=== PATIENT | female | born 1985 | race Hispanic/Latino ===

== ENCOUNTER 2017-05-20 03:51 | Emergency (ER) | payer MEDICAID, OTHER ==
[2017-05-20 04:04] VITALS: BP 114/61; TEMP 97.5
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
[2017-05-20 05:17] VITALS: PULSE 86; RESP 19
[2017-05-20 05:27] VITALS: O2SAT 97
== END 2017-05-20 05:19 | disposition home or self-care (01) ==
LOC: C.ER 03:51
DX: S16.1XXA Strain of muscle, fascia and tendon at neck level, initial encounter (principal); S80.12XA Contusion of left lower leg, initial encounter; V89.2XXA Person injured in unspecified motor-vehicle accident, traffic, initial encounter

== ENCOUNTER 2017-05-21 21:48 | Emergency (ER) | payer OTHER ==
[2017-05-21] MEDS ORDERED: Lidocaine 5% Patch TD STA (22:31)
[2017-05-21] MEDS ORDERED: Lidocaine 5% Patch TD ONE (22:40)
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
[2017-05-22 00:36] VITALS: BP 113/60; PULSE 67; RESP 16; TEMP 98.7
[2017-05-22 06:54] VITALS: O2SAT 98
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
== END 2017-05-22 00:35 | disposition home or self-care (01) ==
LOC: C.ER 21:48
DX: M54.5 Low back pain (principal); S16.1XXD Strain of muscle, fascia and tendon at neck level, subsequent encounter; V89.2XXD Person injured in unspecified motor-vehicle accident, traffic, subsequent encounter
CPT/HCPCS: 72040; 72100; 73590; 96372; 99284; J1885

== ENCOUNTER 2017-09-17 10:45 | Emergency (ER) | payer SELFPAY ==
[2017-09-17 10:53] VITALS: BP 114/80; PULSE 81; RESP 16; TEMP 98.6; O2SAT 96; BMI 37.3
--- NOTE | 2017-09-17 11:08 | C.PDOC ---
History Of Present Illness 32 y/o female presents to the ER complaining of pain/ discharge in both ears for two weeks. She state the pain/ discharge began after swimming and worsens after going to the beach yesterday. SHe denies any associated fever, headache or trauma. B/L EAR PAIN, DC X 2 WEEKS. ONSET AFTER SWIMMING. [place] NO FEVER, TRAUMA. EXAM NONTOXIC HEENT B/L OTITIS EXTERNA; TM INTACT. OUTER EAR WNL REMAINDER NEG Time Seen by Provider: 09/17/17 11:02 Chief Complaint (Nursing): ENT Problem History Per: Patient History/Exam Limitations: None Onset/Duration Of Symptoms: Days Current Symptoms Are (Timing): Still Present Quality (Ear): Discharge Symptoms Have Been: Continuous Past Medical History Reviewed: Historical Data, Nursing Documentation, Vital Signs Vital Signs: Last Vital Signs Temp 98.6 F 09/17/17 10:51 Pulse 81 09/17/17 10:51 Resp 16 09/17/17 10:51 BP 114/80 09/17/17 10:51 Pulse Ox 96 09/18/17 15:56 - Medical History PMH: No Chronic Diseases Surgical History: No Surg Hx Family History: States: Unknown Family Hx Denies: Diabetes - Social History Hx Tobacco Use: No Hx Alcohol Use: No Hx Substance Use: No - Immunization History Hx Tetanus Toxoid Vaccination: No Hx Influenza Vaccination: No Hx Pneumococcal Vaccination: No Review Of Systems Except As Marked, All Systems Reviewed And Found Negative. Constitutional: Negative for: Fever ENT: Positive for: Ear Pain, Ear Discharge Neurological: Negative for: Headache, Dizziness Physical Exam - Physical Exam Appears: Well, Non-toxic, No Acute Distress Skin: Normal Color, Warm, No Rash Head: Atraumatic, Normacephalic Eye(s): bilateral: Normal Inspection, PERRL, EOMI Ear(s): Bilateral: Other ( OTITIS EXTERNA; TM INTACT. OUTER EAR WNL) Oral Mucosa: Moist Neck: Normal ROM Chest: Symmetrical Cardiovascular: Rhythm Regular, No Murmur Respiratory: Normal Breath Sounds, No Rales, No Rhonchi, No Wheezing, Other ( NARD) Gastrointestinal/Abdominal: Bowel Sounds, Soft, No Tenderness Extremity: Normal ROM Extremity: Bilateral: Atraumatic, Normal Color And Temperature, Normal ROM Pulses: Left Radial: Normal, Right Radial: Normal Neurological/Psych: Oriented x3 Gait: Steady ED Course And Treatment O2 Sat by Pulse Oximetry: 96 (RA) Pulse Ox Interpretation: Normal Progress Note: Impression: 32 y/o female with bilateral ear pain/ discharge Disposition Counseled Patient/Family Regarding: Diagnosis, Need For Followup, Rx Given - Disposition Referrals: [facility] [Outside] [facility] [Outside] Disposition: HOME/ ROUTINE Disposition Time: 11:06 Condition: GOOD Prescriptions: Ciprofloxacin/Dexamethasone [Ciprodex 0.3%-0.1% 7.5 Ml] 4 drop OT BID #1 bottle Instructions: Outer Ear Infection (DC) Forms: [employer] (Arabic), Work Excuse - Clinical Impression Clinical Impression: Otitis externa - 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 - Scribe Statement The provider has reviewed the documentation as recorded by the Scribe (Phuong Suárez) . Provider Attestation: All medical record entries made by the Scribe were at my direction and personally dictated by me. I have reviewed the chart and agree that the record accurately reflects my personal performance of the history, physical exam, medical decision making, and the department course for this patient. I have also personally directed, reviewed, and agree with the discharge instructions and disposition.
== END 2017-09-17 11:33 | disposition home or self-care (01) ==
LOC: C.ER 10:45
DX: H60.93 Unspecified otitis externa, bilateral (principal)

== ENCOUNTER 2018-05-10 18:29 | Observation (INO) | payer OTHER ==
[2018-05-10 18:29] VITALS: BMI 37.3
[2018-05-10 20:11] LABS: BASO # 0.1 K/uL (0.0-0.2); BASO % 0.7 % (0.0-2.0); EOS # 0.1 K/uL (0.0-0.7); EOS % 1.7 % (0.0-4.0); HEMOGLOBIN 11.9 g/dL (11.0-16.0); LYMPH # 2.3 K/uL (1.0-4.3); LYMPH % 30.4 % (20.0-40.0); MEAN CELL VOLUME 78.2 fL (81.0-99.0); MEAN CORPUSCULAR HEMOGLOBIN 25.4 pg (27.0-31.0); MEAN CORPUSCULAR HGB CONC 32.4 g/dL (33.0-37.0); MEAN PLATELET VOLUME 9.5 fL (7.2-11.7); MONO # 0.7 K/uL (0.0-0.8); MONO % 9.8 % (0.0-10.0); NEUT # 4.4 K/uL (1.8-7.0); NEUT % 57.4 % (50.0-75.0); RBC 4.71 Mil/uL (3.80-5.20); RED CELL DISTRIBUTION WIDTH 13.6 % (11.5-14.5); WHITE BLOOD COUNT 7.6 K/uL (4.8-10.8)
[2018-05-10 20:23] LABS: ALB/GLOB RATIO 1.5 (1.0-2.1); ALBUMIN 4.2 g/dL (3.5-5.0); AST/SGOT 18 U/L (14-36); BLOOD UREA NITROGEN 9 mg/dL (7-17); CALCIUM 9.1 mg/dl (8.6-10.4); GFR NON-AFRICAN AMERICAN > 60
[2018-05-10 20:25] LABS: ALT/SGPT < 6 U/L (9-52)
--- NOTE | 2018-05-10 20:58 | C.PDOC ---
History Of Present Illness Patient is a 32 year old female who presents to the ED c/o a 4 day history of cough with blood sputum. Patient states that she had a PPD placed and read as positive. She notes a tactile fever. Time Seen by Provider: 05/10/18 19:38 Chief Complaint (Nursing): Cough, Cold, Congestion History Per: Patient History/Exam Limitations: no limitations Onset/Duration Of Symptoms: Days (4) Current Symptoms Are (Timing): Still Present Recent travel outside of the [place]: No Additional History Per: Patient Past Medical History Reviewed: Historical Data, Nursing Documentation, Vital Signs Vital Signs: Last Vital Signs Temp 98.6 F 05/10/18 18:34 Pulse 75 05/10/18 18:34 Resp 16 05/10/18 18:34 BP 124/85 05/10/18 18:34 Pulse Ox 99 05/10/18 18:34 - Medical History PMH: No Chronic Diseases Surgical History: No Surg Hx Family History: States: Unknown Family Hx Denies: Diabetes - Social History Hx Tobacco Use: No Hx Alcohol Use: No Hx Substance Use: No - Immunization History Hx Tetanus Toxoid Vaccination: No Hx Influenza Vaccination: No Hx Pneumococcal Vaccination: No Review Of Systems Except As Marked, All Systems Reviewed And Found Negative. Respiratory: Positive for: Sputum (hemoptysis) Physical Exam - Physical Exam Appears: Non-toxic, No Acute Distress Skin: Normal Color, Warm, Dry Head: Atraumatic, Normacephalic Eye(s): bilateral: Normal Inspection, PERRL, EOMI Oral Mucosa: Moist Chest: Symmetrical Cardiovascular: Rhythm Regular, No Murmur Respiratory: Normal Breath Sounds, No Rales, No Rhonchi, No Wheezing Gastrointestinal/Abdominal: Normal Exam, Soft, No Tenderness Extremity: Other (1 cm raised area to volar aspect of left forearm) Extremity: Bilateral: Atraumatic, Normal Color And Temperature, Normal ROM Neurological/Psych: Oriented x3, Normal Speech ED Course And Treatment - Laboratory Results Result Diagrams: 05/11/18 07:40 05/11/18 07:40 Lab Results: Total Bilirubin 0.2 mg/dL (0.2-1.3) 05/10/18 20:07 AST 18 U/L (14-36) 05/10/18 20:07 ALT < 6 U/L (9-52) L 05/10/18 20:07 Alkaline Phosphatase 49 U/L (38-126) 05/10/18 20:07 Total Protein 7.1 g/dL (6.3-8.3) 05/10/18 20:07 Albumin 4.2 g/dL (3.5-5.0) 05/10/18 20:07 Globulin 2.9 gm/dL (2.2-3.9) 05/10/18 20:07 Albumin/Globulin Ratio 1.5 (1.0-2.1) 05/10/18 20:07 O2 Sat by Pulse Oximetry: 99 (on RA) Pulse Ox Interpretation: Normal Medical Decision Making Medical Decision Making: Plan: CXR Labs Blood Culture POC Urine Assessment: Hemoptysis Disposition Discussed With DrLandy: Matthew Monte Jr. Doctor Will See Patient In The: Hospital Counseled Patient/Family Regarding: Studies Performed, Diagnosis - Disposition Disposition: HOSPITALIZED Disposition Time: 21:00 Condition: FAIR - Clinical Impression Clinical Impression: Hemoptysis - Scribe Statement The provider has reviewed the documentation as recorded by the Rosi Ibanez All medical record entries made by the Rosi were at my direction and personally dictated by me. I have reviewed the chart and agree that the record accurately reflects my personal performance of the history, physical exam, medical decision making, and the department course for this patient. I have also personally directed, reviewed, and agree with the discharge instructions and disposition.
[2018-05-11 00:31] VITALS: RESP 20
[2018-05-11 07:45] LABS: BASO # 0.1 K/uL (0.0-0.2); BASO % 0.9 % (0.0-2.0); EOS # 0.1 K/uL (0.0-0.7); HEMOGLOBIN 11.9 g/dL (11.0-16.0); LYMPH # 1.9 K/uL (1.0-4.3); LYMPH % 25.5 % (20.0-40.0); MEAN CELL VOLUME 78.4 fL (81.0-99.0); MEAN CORPUSCULAR HEMOGLOBIN 25.7 pg (27.0-31.0); MEAN CORPUSCULAR HGB CONC 32.8 g/dL (33.0-37.0); MEAN PLATELET VOLUME 9.6 fL (7.2-11.7); MONO # 0.9 K/uL (0.0-0.8); MONO % 11.7 % (0.0-10.0); NEUT # 4.4 K/uL (1.8-7.0); NEUT % 59.9 % (50.0-75.0); RBC 4.61 Mil/uL (3.80-5.20); WHITE BLOOD COUNT 7.3 K/uL (4.8-10.8)
[2018-05-11 08:01] LABS: ALB/GLOB RATIO 1.2 (1.0-2.1); ALBUMIN 3.9 g/dL (3.5-5.0); ALT/SGPT 11 U/L (9-52); AST/SGOT 20 U/L (14-36); BLOOD UREA NITROGEN 12 mg/dL (7-17); CALCIUM 8.8 mg/dl (8.6-10.4); GFR NON-AFRICAN AMERICAN > 60
--- NOTE | 2018-05-11 09:30 | CP.PCM.HP ---
History of Present Illness - History of Present Illness History of Present Illness: H&P for Dr. Monte. 32 year old female with no PMHx presents to ED for positive PPD test and hemoptysis that began 4 days ago. Patient reports filing up the tissue with blood when coughing. Patient states that prior to developing bloody sputum, she experienced subjective fevers, cough, headaches, rhinorrhea and shortness of breath on and off for one year. 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 Patient denies nausea, vomiting, diarrhea, chest pain, recent travel. PMHx: Denies PSHx: Denies Meds: Denies Allergies: NKDA Family Hx: Mother at age 60 from stroke and DM. Social Hx: Smokes a few cigarettes per wee. Drinks alcohol occasionally. Denies illicit drug use. Review of Systems: -Gen: + fever, + chills, headache, + weakness. -HEENT: + dizziness, No change in vision, No change in hearing, No sore throat, No dysphagia, No nasal congestion, No mucous. -Cardio: No chest pain, + palpitations, No lower extremity edema, No orthopnea. -Resp: + cough, + dyspnea, + hemoptysis, No wheezing, No pain on inspiration. -GI: abdominal pain, No nausea/vomiting, +constipation, No hematochezia, No hematemesis. -: No dysuria, No urinary freq, No incontinence, No hematuria, No change in urinary stream. -MSK: No back pain, No muscle weakness, No radiating pain. -Skin: No itching, No rash, No lesions. -Neuro: No confusion, No numbness, No tingling, No focal weakness, No radicular pain, No syncope. -Psych: No anxiety, No depression, No H/I, No S/I, No hallucinations. Present on Admission - Present on Admission Any Indicators Present on Admission: No Past Patient History - Infectious Disease Hx of Infectious Diseases: None - Past Social History Smoking Status: Never Smoked - PSYCHIATRIC Hx Substance Use: No - SURGICAL HISTORY Hx Surgeries: No - ANESTHESIA Hx Anesthesia: No Meds Allergies/Adverse Reactions: Allergies Allergy/AdvReac Type Severity Reaction Status Date / Time No Known Allergies Allergy Verified 05/10/18 18:32 Physical Exam - Constitutional Appears: No Acute Distress - Head Exam Head Exam: ATRAUMATIC, NORMOCEPHALIC - Eye Exam Eye Exam: EOMI, Normal appearance, PERRL - ENT Exam ENT Exam: Mucous Membranes Moist - Neck Exam Neck exam: Positive for: Full Rom, Normal Inspection - Respiratory Exam Respiratory Exam: Clear to Auscultation Bilateral, NORMAL BREATHING PATTERN. absent: Rales, Rhonchi, Wheezes - Cardiovascular Exam Cardiovascular Exam: REGULAR RHYTHM, +S1, +S2 - GI/Abdominal Exam GI & Abdominal Exam: Soft, Tenderness (mild diffuse tenderness). absent: Distended, Guarding, Rebound - Extremities Exam Extremities exam: Positive for: normal capillary refill, normal inspection (Trace non-pitting edema b/l lower extremities), pedal pulses present. Negative for: calf tenderness - Neurological Exam Neurological exam: Alert, Oriented x3 - Psychiatric Exam Psychiatric exam: Normal Affect, Normal Mood - Skin Skin Exam: Intact, Normal Color, Warm Results - Vital Signs Recent Vital Signs: Last Vital Signs Temp 98.1 F 05/11/18 08:15 Pulse 64 05/11/18 08:15 Resp 20 05/11/18 08:15 BP 108/73 05/11/18 08:15 Pulse Ox 98 05/11/18 08:15 - Labs Result Diagrams: 05/11/18 07:40 05/11/18 07:40 Labs: Laboratory Results - last 24 hr 05/10/18 05/10/18 05/11/18 20:07 20:07 07:40 WBC 7.6 7.3 RBC 4.71 4.61 Hgb 11.9 11.9 Hct 36.8 36.1 MCV 78.2 L 78.4 L MCH 25.4 L 25.7 L MCHC 32.4 L 32.8 L RDW 13.6 14.0 Plt Count 269 251 MPV 9.5 9.6 Neut % (Auto) 57.4 59.9 Lymph % (Auto) 30.4 25.5 Freestone % (Auto) 9.8 11.7 H Eos % (Auto) 1.7 2.0 Baso % (Auto) 0.7 0.9 Neut # (Auto) 4.4 4.4 Lymph # (Auto) 2.3 1.9 [place] # (Auto) 0.7 0.9 H Eos # (Auto) 0.1 0.1 Baso # (Auto) 0.1 0.1 Sodium 136 Potassium 3.8 Chloride 102 Carbon Dioxide 26 Anion Gap 12 BUN 9 Creatinine 0.5 L Est GFR ( Amer) > 60 Est GFR (Non-Af Amer) > 60 Random Glucose 84 Calcium 9.1 Total Bilirubin 0.2 AST 18 ALT < 6 L Alkaline Phosphatase 49 Total Protein 7.1 Albumin 4.2 Globulin 2.9 Albumin/Globulin Ratio 1.5 05/11/18 07:40 WBC RBC Hgb Hct MCV MCH MCHC RDW Plt Count MPV Neut % (Auto) Lymph % (Auto) Freestone % (Auto) Eos % (Auto) Baso % (Auto) Neut # (Auto) Lymph # (Auto) Fre[place] # (Auto) Eos # (Auto) Baso # (Auto) Sodium 137 Potassium 4.0 Chloride 103 Carbon Dioxide 27 Anion Gap 10 BUN 12 Creatinine 0.6 L Est GFR ( Amer) > 60 Est GFR (Non-Af Amer) > 60 Random Glucose 94 Calcium 8.8 Total Bilirubin 0.2 AST 20 ALT 11 Alkaline Phosphatase 46 Total Protein 7.0 Albumin 3.9 Globulin 3.1 Albumin/Globulin Ratio 1.2 Assessment & Plan - Assessment and Plan (Free Text) Assessment: 32 year old female with positive PPD test and hemoptysis Plan: Possible Tb Hemoptysis, +PPD f/u quantiferon gold RIPE therapy Constipation Colase 100mg PRN PPx VTE contraindicated, hemoptysis SCD GI ppx not indicated Discussed with Dr. Monte. Phuong Urbina, PGY-1
--- NOTE | 2018-05-11 09:44 | RAD ---
Date of service: 05/10/2018 HISTORY: Shortness of breath COMPARISON: No prior. TECHNIQUE: Chest PA and lateral FINDINGS: LINES AND TUBES: None. LUNG AND PLEURA: The lungs are well inflated and clear. No pleural effusion or pneumothorax. HEART AND MEDIASTINUM: The heart is not enlarged. No aortic atherosclerotic calcifications present. The hilar and mediastinal contours are within normal limits. SKELETAL STRUCTURES: The bony structures are within normal limits for the patient's age. VISUALIZED UPPER ABDOMEN: Normal. OTHER FINDINGS: None. IMPRESSION: No active pulmonary disease.
--- NOTE | 2018-05-11 12:48 | CP.PCM.CON ---
History of Present Illness - History of Present Illness History of Present Illness: Reason for consultation: Positive PPD and hemoptysis? 32-year-old female with no significant past medical history presented to [facility] complaining of spitting up blood for the past 4 days after she had braces/dental work done. Denies coughing up blood. Patient states that she was tested 6 months ago for negative PPD and recent PPD came back positive. Denies fever chills, denies night sweats, denies weight loss, denies shortness of breath. PMHx: Denies PSHx: Denies Meds: Denies Allergies: NKDA Family Hx: Mother at age 60 from stroke and DM. Social Hx: Smokes a few cigarettes per wee. Drinks alcohol occasionally. Denies illicit drug use. Review of Systems - Review of Systems All systems: reviewed and no additional remarkable complaints except (Denies fever chills, denies night sweats) Past Patient History - Infectious Disease Hx of Infectious Diseases: None - Past Social History Smoking Status: Never Smoked - PSYCHIATRIC Hx Substance Use: No - SURGICAL HISTORY Hx Surgeries: No - ANESTHESIA Hx Anesthesia: No Meds Allergies/Adverse Reactions: Allergies Allergy/AdvReac Type Severity Reaction Status Date / Time No Known Allergies Allergy Verified 05/10/18 18:32 - Medications Medications: Current Medications Acetaminophen (Tylenol 325mg Tab) 650 mg PO Q6 PRN PRN Reason: Fever >100.4 F Docusate Sodium (Colace) 100 mg PO DAILY PRN PRN Reason: Constipation Ethambutol HCl (Myambutol) 1,600 mg PO DAILY [facility]ATIA; Protocol Last Admin: 05/11/18 10:58 Dose: 1,600 mg Ibuprofen (Motrin Tab) 400 mg PO Q6 PRN PRN Reason: Pain, Mild (1-3) Isoniazid (Niazid) 300 mg PO DAILY [facility]AT[facility]; Protocol Last Admin: 05/11/18 10:58 Dose: 300 mg Pyrazinamide (Pyrazinamide) 2,000 mg PO DAILY [facility]AT[facility]; Protocol Last Admin: 05/11/18 10:58 Dose: 2,000 mg Rifampin (Rifampin Cap) 600 mg PO DAILY [facility]ATIA; Protocol Last Admin: 05/11/18 10:58 Dose: 600 mg Physical Exam - Head Exam Head Exam: ATRAUMATIC, NORMOCEPHALIC - ENT Exam ENT Exam: Mucous Membranes Moist - Neck Exam Neck exam: Positive for: Normal Inspection - Respiratory Exam Respiratory Exam: Clear to Auscultation Bilateral - Cardiovascular Exam Cardiovascular Exam: REGULAR RHYTHM - GI/Abdominal Exam GI & Abdominal Exam: Normal Bowel Sounds, Soft - Extremities Exam Extremities exam: Positive for: normal inspection - Neurological Exam Neurological exam: Alert, Oriented x3 Results - Vital Signs Recent Vital Signs: Last Vital Signs Temp 98.1 F 05/11/18 08:15 Pulse 64 05/11/18 08:15 Resp 20 05/11/18 08:15 BP 108/73 05/11/18 08:15 Pulse Ox 98 05/11/18 08:15 - Labs Result Diagrams: 05/11/18 07:40 05/11/18 07:40 Labs: Laboratory Results - last 24 hr 05/10/18 05/10/18 05/11/18 20:07 20:07 07:40 WBC 7.6 7.3 RBC 4.71 4.61 Hgb 11.9 11.9 Hct 36.8 36.1 MCV 78.2 L 78.4 L MCH 25.4 L 25.7 L MCHC 32.4 L 32.8 L RDW 13.6 14.0 Plt Count 269 251 MPV 9.5 9.6 Neut % (Auto) 57.4 59.9 Lymph % (Auto) 30.4 25.5 [place] % (Auto) 9.8 11.7 H Eos % (Auto) 1.7 2.0 Baso % (Auto) 0.7 0.9 Neut # (Auto) 4.4 4.4 Lymph # (Auto) 2.3 1.9 [place] # (Auto) 0.7 0.9 H Eos # (Auto) 0.1 0.1 Baso # (Auto) 0.1 0.1 Sodium 136 Potassium 3.8 Chloride 102 Carbon Dioxide 26 Anion Gap 12 BUN 9 Creatinine 0.5 L Est GFR ( Amer) > 60 Est GFR (Non-Af Amer) > 60 Random Glucose 84 Calcium 9.1 Total Bilirubin 0.2 AST 18 ALT < 6 L Alkaline Phosphatase 49 Total Protein 7.1 Albumin 4.2 Globulin 2.9 Albumin/Globulin Ratio 1.5 05/11/18 07:40 WBC RBC Hgb Hct MCV MCH MCHC RDW Plt Count MPV Neut % (Auto) Lymph % (Auto) [place] % (Auto) Eos % (Auto) Baso % (Auto) Neut # (Auto) Lymph # (Auto) [place] # (Auto) Eos # (Auto) Baso # (Auto) Sodium 137 Potassium 4.0 Chloride 103 Carbon Dioxide 27 Anion Gap 10 BUN 12 Creatinine 0.6 L Est GFR ( Amer) > 60 Est GFR (Non-Af Amer) > 60 Random Glucose 94 Calcium 8.8 Total Bilirubin 0.2 AST 20 ALT 11 Alkaline Phosphatase 46 Total Protein 7.0 Albumin 3.9 Globulin 3.1 Albumin/Globulin Ratio 1.2 Assessment & Plan (1) Positive PPD Assessment and Plan: Patient 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
--- NOTE | 2018-05-11 13:24 | CT ---
Date of service: 05/11/2018 PROCEDURE: CT Chest without contrast HISTORY: hemoptysis COMPARISON: Not available TECHNIQUE: Contiguous axial images were obtained through the chest without intravenous contrast enhancement. Sagittal and coronal reconstructions were performed. Radiation dose (DLP): 1010.0 mGy-cm. This CT exam was performed using one or more of the following dose reduction techniques: Automated exposure control, adjustment of the mA and/or kV according to patient size, and/or use of iterative reconstruction technique. FINDINGS: LUNGS: Clear lungs. Visualized airway clear MEDIASTINUM: Unremarkable thoracic aorta. No aneurysm. Normal sized heart. Main pulmonary artery unremarkable. No vascular congestion. No lymphadenopathy. There is soft tissue density seen within the anterior superior mediastinum, without evidence of discrete mass, most likely reflecting residual thymic tissue. No aortic atherosclerotic calcification or mural plaque present. PLEURA: No pleural fluid. No pneumothorax. BONES: No fracture. No destructive lesion. UPPER ABDOMEN: Grossly unremarkable. OTHER FINDINGS: None. IMPRESSION: Probable residual thymic tissue in anterior superior mediastinum. The remainder the examination is unremarkable.
--- NOTE | 2018-05-11 13:41 | CP.PCM.PN ---
Subjective - Date & Time of Evaluation Date of Evaluation: 05/11/18 Time of Evaluation: 13:29 - Subjective Subjective: Medicine Progress Note for Dr. Monte's service S/E at bedside. Offers no acute complaints. Denies fevers, chills, cp, hemoptysis, cough, n/v, constipation or diarrhea, and dysuria. Objective - Vital Signs/Intake and Output Vital Signs (last 24 hours): Temp Pulse Resp BP Pulse Ox 98.1 F 64 20 108/73 98 05/11/18 08:15 05/11/18 08:15 05/11/18 08:15 05/11/18 08:15 05/11/18 08:15 Intake and Output: 05/11/18 05/11/18 06:59 18:59 Intake Total 240 Balance 240 - Medications Medications: Current Medications Acetaminophen (Tylenol 325mg Tab) 650 mg PO Q6 PRN PRN Reason: Fever >100.4 F Docusate Sodium (Colace) 100 mg PO DAILY PRN PRN Reason: Constipation Ethambutol HCl (Myambutol) 1,600 mg PO DAILY [facility]; Protocol Last Admin: 05/11/18 10:58 Dose: 1,600 mg Ibuprofen (Motrin Tab) 400 mg PO Q6 PRN PRN Reason: Pain, Mild (1-3) Isoniazid (Niazid) 300 mg PO DAILY [facility]AT[facility]; Protocol Last Admin: 05/11/18 10:58 Dose: 300 mg Pyrazinamide (Pyrazinamide) 2,000 mg PO DAILY [facility]; Protocol Last Admin: 05/11/18 10:58 Dose: 2,000 mg Rifampin (Rifampin Cap) 600 mg PO DAILY [facility]AT[facility]; Protocol Last Admin: 05/11/18 10:58 Dose: 600 mg - Labs Labs: 05/11/18 07:40 05/11/18 07:40 - Constitutional Appears: Non-toxic, No Acute Distress - Head Exam Head Exam: NORMAL INSPECTION, NORMOCEPHALIC - Eye Exam Eye Exam: EOMI, Normal appearance. absent: Nystagmus, Scleral icterus - ENT Exam ENT Exam: Mucous Membranes Dry - Respiratory Exam Respiratory Exam: Clear to Ausculation Bilateral, NORMAL BREATHING PATTERN. absent: Rales, Rhonchi, Wheezes - Cardiovascular Exam Cardiovascular Exam: REGULAR RHYTHM, +S1, +S2 - GI/Abdominal Exam GI & Abdominal Exam: Soft, Normal Bowel Sounds. absent: Guarding, Rigid, Tenderness - Extremities Exam Extremities Exam: Normal Inspection - Neurological Exam Neurological Exam: Alert, Awake, Oriented x3 - Psychiatric Exam Psychiatric exam: Normal Affect, Normal Mood - Skin Skin Exam: Dry, Intact, Normal Color Assessment and Plan - Assessment and Plan (Free Text) Assessment: 32 yo female w/ no PMH admitted for cough w/ hemoptysis. Plan: Hemoptysis w/ positive PPD Pulm Consult: Dr. Hammonds- adam appreciated CXR- no active pulm disease Chest CT- probable residual thymic tissue in anterior superior mediastinum AFB x 3 pending Sputum cx pending Quantiferon pending RIPE therapy on with Vit b 6 25mg po daily Rifampin 600mg po daily INH 300mg po daily Ethambutol 1600mg po daily Pyrazinamide 2000mg po daily HIV pending GI ppx: Florastor 250mg po bid DVT ppx: Not indicated, ambulatory Case D/W Dr. Monte PGY-1 Anthony Parsons
[2018-05-11] MEDS: Saccharomyces Boulardi 250 mg Cap PO SCH (17:27)
[2018-05-12 08:01] LABS: BASO % 0.6 % (0.0-2.0); EOS # 0.1 K/uL (0.0-0.7); EOS % 2.3 % (0.0-4.0); HEMOGLOBIN 12.4 g/dL (11.0-16.0); LYMPH # 1.6 K/uL (1.0-4.3); LYMPH % 24.7 % (20.0-40.0); MEAN CELL VOLUME 78.6 fL (81.0-99.0); MEAN CORPUSCULAR HGB CONC 33.1 g/dL (33.0-37.0); MEAN PLATELET VOLUME 9.4 fL (7.2-11.7); MONO # 0.9 K/uL (0.0-0.8); MONO % 14.1 % (0.0-10.0); NEUT # 3.8 K/uL (1.8-7.0); NEUT % 58.3 % (50.0-75.0); RBC 4.77 Mil/uL (3.80-5.20); RED CELL DISTRIBUTION WIDTH 13.7 % (11.5-14.5); WHITE BLOOD COUNT 6.5 K/uL (4.8-10.8)
[2018-05-12 08:05] VITALS: BP 114/77; PULSE 71; TEMP 97.4; O2SAT 100
--- NOTE | 2018-05-12 08:14 | CP.PCM.PN ---
Subjective - Date & Time of Evaluation Date of Evaluation: 05/12/18 Time of Evaluation: 08:14 - Subjective Subjective: Medicine Progress Note: Patient seen and examined at bedside. Per nursing no acute events occurred overnight .Patient denies any fevers, chills, headaches, dizziness, abdominal pain, or any other complaints. Objective - Vital Signs/Intake and Output Vital Signs (last 24 hours): Temp Pulse Resp BP Pulse Ox 97.4 F L 71 20 114/77 100 05/12/18 07:00 05/12/18 07:00 05/12/18 07:00 05/12/18 07:00 05/12/18 07:00 Intake and Output: 05/12/18 05/12/18 06:59 18:59 Intake Total 400 Balance 400 - Medications Medications: Current Medications Acetaminophen (Tylenol 325mg Tab) 650 mg PO Q6 PRN PRN Reason: Fever >100.4 F Docusate Sodium (Colace) 100 mg PO DAILY PRN PRN Reason: Constipation Ethambutol HCl (Myambutol) 1,600 mg PO DAILY [facility]; Protocol Last Admin: 05/11/18 10:58 Dose: 1,600 mg Ibuprofen (Motrin Tab) 400 mg PO Q6 PRN PRN Reason: Pain, Mild (1-3) Isoniazid (Niazid) 300 mg PO DAILY [facility]; Protocol Last Admin: 05/11/18 10:58 Dose: 300 mg Pyrazinamide (Pyrazinamide) 2,000 mg PO DAILY [facility]; Protocol Last Admin: 05/11/18 10:58 Dose: 2,000 mg Pyridoxine HCl (Vitamin B6) 25 mg PO DAILY [facility] Last Admin: 05/11/18 14:35 Dose: 25 mg Rifampin (Rifampin Cap) 600 mg PO DAILY [facility]; Protocol Last Admin: 05/11/18 10:58 Dose: 600 mg Saccharomyces Boulardii (Florastor) 250 mg PO BID [facility] Last Admin: 05/11/18 17:27 Dose: 250 mg - Labs Labs: 05/12/18 07:50 05/11/18 07:40 - Head Exam Head Exam: ATRAUMATIC, NORMAL INSPECTION - Eye Exam Eye Exam: EOMI, Normal appearance, PERRL Pupil Exam: NORMAL ACCOMODATION, PERRL - ENT Exam ENT Exam: Mucous Membranes Moist, Normal Oropharynx - Neck Exam Neck Exam: Normal Inspection - Respiratory Exam Respiratory Exam: Clear to Ausculation Bilateral, NORMAL BREATHING PATTERN. abs ent: Decreased Breath Sounds, Prolonged Expiratory Phase - Cardiovascular Exam Cardiovascular Exam: REGULAR RHYTHM, +S1, +S2 - GI/Abdominal Exam GI & Abdominal Exam: Soft, Normal Bowel Sounds. absent: Hyperactive Bowel So unds - Extremities Exam Extremities Exam: Full ROM, Normal Inspection. absent: Pedal Edema - Neurological Exam Neurological Exam: Alert, Awake, CN II-XII Intact, Oriented x3 - Psychiatric Exam Psychiatric exam: Normal Affect, Normal Mood. absent: Anxious - Skin Skin Exam: Dry, Intact Assessment and Plan - Assessment and Plan (Free Text) Plan: 32 yo female w/ no PMH admitted for cough w/ hemoptysis. Plan: Hemoptysis w/ positive PPD Pulm Consult: Dr. Hammonds- adam appreciated CXR- no active pulm disease Chest CT- probable residual thymic tissue in anterior superior mediastinum AFB x 3 pending Sputum cx pending Quantiferon pending RIPE therapy on with Vit b 6 25mg po daily Rifampin 600mg po daily INH 300mg po daily Ethambutol 1600mg po daily Pyrazinamide 2000mg po daily HIV negative GI ppx: Florastor 250mg po bid DVT ppx: Not indicated, ambulatory Case D/W Dr. Monte
[2018-05-12 08:31] LABS: ALB/GLOB RATIO 1.2 (1.0-2.1); ALBUMIN 4.1 g/dL (3.5-5.0); ALT/SGPT 10 U/L (9-52); AST/SGOT 22 U/L (14-36); BLOOD UREA NITROGEN 11 mg/dL (7-17); CALCIUM 9.6 mg/dl (8.6-10.4); GFR NON-AFRICAN AMERICAN > 60
[2018-05-12] MEDS: Saccharomyces Boulardi 250 mg Cap PO SCH (10:29)
--- NOTE | 2018-05-12 10:29 | CP.PCM.PN ---
Subjective - Date & Time of Evaluation Date of Evaluation: 05/12/18 Time of Evaluation: 08:00 - Subjective Subjective: Patient seen and examined Denies hemoptysis, denies fever chills, denies night sweats CAT scan of the chest negative for infiltrate Recent converter Discharge home on INH and vitamin B6 for total of 6 months Follow-up LFTs Objective - Vital Signs/Intake and Output Vital Signs (last 24 hours): Temp Pulse Resp BP Pulse Ox 97.4 F L 71 20 114/77 100 05/12/18 07:00 05/12/18 07:00 05/12/18 07:00 05/12/18 07:00 05/12/18 10:00 Intake and Output: 05/12/18 05/12/18 06:59 18:59 Intake Total 400 Balance 400 - Medications Medications: Current Medications Acetaminophen (Tylenol 325mg Tab) 650 mg PO Q6 PRN PRN Reason: Fever >100.4 F Docusate Sodium (Colace) 100 mg PO DAILY PRN PRN Reason: Constipation Ibuprofen (Motrin Tab) 400 mg PO Q6 PRN PRN Reason: Pain, Mild (1-3) Isoniazid (Niazid) 300 mg PO DAILY [facility]; Protocol Last Admin: 05/11/18 10:58 Dose: 300 mg Pyridoxine HCl (Vitamin B6) 25 mg PO DAILY [facility] Last Admin: 05/11/18 14:35 Dose: 25 mg Saccharomyces Boulardii (Florastor) 250 mg PO BID [facility] Last Admin: 05/11/18 17:27 Dose: 250 mg - Labs Labs: 05/12/18 07:50 05/12/18 07:50 Assessment and Plan (1) Positive PPD Status: Acute
--- NOTE | 2018-05-12 11:04 | CP.PCM.DIS ---
Provider - Provider Date of Admission: 05/10/18 20:59 Attending physician: Matthew Monte Jr, MD Consults: 05/11/18 11:11 Pulmonology Consult Routine Comment: Consulting Provider: Bonifacio Hammonds Consulting Physician: Bonifacio Hammonds Reason for Consult: concern for ?TB; positive ppd reading, AFB & quant pending Time Spent in preparation of Discharge (in minutes): 45 Hospital Course - Lab Results Lab Results: Micro Results 05/10/18 22:07 Blood Blood Culture - Preliminary NO GROWTH AFTER 24 HOURS 05/10/18 22:07 Blood Blood Culture - Preliminary NO GROWTH AFTER 24 HOURS 05/11/18 16:06 Sputum Gram Stain - Final Most Recent Lab Values WBC 6.5 K/uL (4.8-10.8) 05/12/18 07:50 RBC 4.77 Mil/uL (3.80-5.20) 05/12/18 07:50 Hgb 12.4 g/dL (11.0-16.0) 05/12/18 07:50 Hct 37.5 % (34.0-47.0) 05/12/18 07:50 MCV 78.6 fL (81.0-99.0) L 05/12/18 07:50 MCH 26.0 pg (27.0-31.0) L 05/12/18 07:50 MCHC 33.1 g/dL (33.0-37.0) 05/12/18 07:50 RDW 13.7 % (11.5-14.5) 05/12/18 07:50 Plt Count 257 K/uL (130-400) 05/12/18 07:50 MPV 9.4 fL (7.2-11.7) 05/12/18 07:50 Neut % (Auto) 58.3 % (50.0-75.0) 05/12/18 07:50 Lymph % (Auto) 24.7 % (20.0-40.0) 05/12/18 07:50 [place] % (Auto) 14.1 % (0.0-10.0) H 05/12/18 07:50 Eos % (Auto) 2.3 % (0.0-4.0) 05/12/18 07:50 Baso % (Auto) 0.6 % (0.0-2.0) 05/12/18 07:50 Neut # (Auto) 3.8 K/uL (1.8-7.0) 05/12/18 07:50 Lymph # (Auto) 1.6 K/uL (1.0-4.3) 05/12/18 07:50 [place] # (Auto) 0.9 K/uL (0.0-0.8) H 05/12/18 07:50 Eos # (Auto) 0.1 K/uL (0.0-0.7) 05/12/18 07:50 Baso # (Auto) 0.0 K/uL (0.0-0.2) 05/12/18 07:50 Sodium 137 mmol/L (132-148) 05/12/18 07:50 Potassium 4.4 mmol/L (3.6-5.2) 05/12/18 07:50 Chloride 102 mmol/L (98-107) 05/12/18 07:50 Carbon Dioxide 27 mmol/L (22-30) 05/12/18 07:50 Anion Gap 13 (10-20) 05/12/18 07:50 BUN 11 mg/dL (7-17) 05/12/18 07:50 Creatinine 0.6 mg/dL (0.7-1.2) L 05/12/18 07:50 Est GFR ( Amer) > 60 05/12/18 07:50 Est GFR (Non-Af Amer) > 60 05/12/18 07:50 Random Glucose 85 mg/dL (65-105) 05/12/18 07:50 Calcium 9.6 mg/dl (8.6-10.4) 05/12/18 07:50 Total Bilirubin 0.7 mg/dL (0.2-1.3) 05/12/18 07:50 AST 22 U/L (14-36) 05/12/18 07:50 ALT 10 U/L (9-52) 05/12/18 07:50 Alkaline Phosphatase 44 U/L (38-126) 05/12/18 07:50 Total Protein 7.5 g/dL (6.3-8.3) 05/12/18 07:50 Albumin 4.1 g/dL (3.5-5.0) 05/12/18 07:50 Globulin 3.4 gm/dL (2.2-3.9) 05/12/18 07:50 Albumin/Globulin Ratio 1.2 (1.0-2.1) 05/12/18 07:50 Urine HCG, Qual Negative (NEGATIVE) 05/11/18 16:06 HIV 1&2 Antibody Screen Negative (NEGATIVE) 05/11/18 17:49 - Hospital Course Hospital Course: Discharge Summary: 32 year old female with no PMHx presents to ED for positive PPD test and hemoptysis that began 4 days ago. Patient reports filing up the tissue with blood when coughing. Patient states that prior to developing bloody sputum, she experienced subjective fevers, cough, headaches, rhinorrhea and shortness of breath on and off for one year. 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 Patient denies nausea, vomiting, diarrhea, chest pain, recent travel. PMHx: Denies PSHx: Denies Meds: Denies Allergies: NKDA Family Hx: Mother at age 60 from stroke and DM. Social Hx: Smokes a few cigarettes per wee. Drinks alcohol occasionally. Denies illicit drug use. Hospital Course: While admitted patient had lab work drawn including quantiferon gold. Patient also reported consitpation and was given Colace with resolution of symptoms. Intially patient was started on RIPE therapy for possible active TB infection. Acid fast stain, sputum cultures and blood cultures all were drawn. Blood cultures were negative times 24 hours, acid fast stain was still pending and preliminary sputum stain was negative. Patient was seen by Pulmonary who cleared her of having Active TB. Pulmonary recommending latent TB treatment upon discharge.. Patient remained afebrile and without leukocytosis for the duration of her hospital stay. Patient was stabilized and discharged with the following instructions. Imaging: CXR- no active pulm disease Chest CT- probable residual thymic tissue in anterior superior mediastinum (See EMR for full report) Discharge Instructions: 1.F/u with PMD within 5 days of discharge. 2.Repeat LFT's in one month. 3.F/u at [facility] for repeat lft's and remainder of antibiotic. Medications: 1.Isoniazid 300mg PO DAILY, #30, No refillls. 2.Vitamin B6 50mg PO DAILY, #30, No refills. Note patient should complete at total of 9 months of latent TB treatment. Patient to follow up in [facility] for remainder of prescription. Discharge Exam - Head Exam Head Exam: ATRAUMATIC, NORMAL INSPECTION, NORMOCEPHALIC - Eye Exam Eye Exam: EOMI, Normal appearance, PERRL Pupil Exam: NORMAL ACCOMODATION, PERRL - ENT Exam ENT Exam: Mucous Membranes Moist, Normal Oropharynx - Respiratory Exam Respiratory Exam: Clear to PA & Lateral, NORMAL BREATHING PATTERN - Cardiovascular Exam Cardiovascular Exam: REGULAR RHYTHM, +S1, +S2 - GI/Abdominal Exam GI & Abdominal Exam: Normal Bowel Sounds, Unremarkable. absent: Organomegaly - Neurological Exam Neurological exam: Alert, CN II-XII Intact, Oriented x3, Reflexes Normal - Psychiatric Exam Psychiatric exam: Normal Affect, Normal Mood - Skin Skin Exam: Dry, Intact Discharge Plan - Discharge Medications Prescriptions: Isoniazid 300 mg PO DAILY #30 tablet Pyridoxine HCl (Vitamin B6) [Vitamin B-6] 50 mg PO DAILY #30 capsule - Follow Up Plan Condition: FAIR Disposition: HOME/ ROUTINE Instructions: Coughing up Blood Referrals: Bonifacio Hammonds MD [Staff Provider] - Matthew Monte Jr., MD [Medical Doctor] -
== END 2018-05-12 13:21 | disposition home or self-care (01) ==
LOC: C.ER 18:29 → C.9E 20:59 → C.5S 22:25
PROVIDERS: ADMIT Internal Medicine; ATTEND Internal Medicine
DX: R76.11 Nonspecific reaction to tuberculin skin test without active tuberculosis (principal); R04.2 Hemoptysis; F17.210 Nicotine dependence, cigarettes, uncomplicated; Z82.3 Family history of stroke; Z83.3 Family history of diabetes mellitus
CPT/HCPCS: 36415; 71046; 71250; 80053; 81025; 84703; 85025; 86481; 86703; 87040; 87070; 87116; 87206; 99285; G0378

== ENCOUNTER 2018-06-10 11:45 | Emergency (ER) | payer OTHER ==
[2018-06-10 11:47] VITALS: BMI 37.3
[2018-06-10 12:00] VITALS: BP 110/72; PULSE 88; RESP 20; TEMP 97.9; O2SAT 98
--- NOTE | 2018-06-10 12:51 | C.PDOC ---
History Of Present Illness 32 year old female presents to the emergency department with complaints of swelling, redness, white discharge/crustiness to right eye for one week. Patient also reports pain and decreased hearing to the right ear for the last several days associated with sore throat. Patient denies fever, chills. Time Seen by Provider: 06/10/18 12:24 Chief Complaint (Nursing): ENT Problem History Per: Patient History/Exam Limitations: None Onset/Duration Of Symptoms: Other (1 week) Current Symptoms Are (Timing): Still Present Quality (Ear): Other (pain, decreased hearing) Quality (Mouth/Throat): Other (pain) Past Medical History Reviewed: Historical Data, Nursing Documentation, Vital Signs Vital Signs: Last Vital Signs Temp 97.9 F 06/10/18 11:57 Pulse 88 06/10/18 11:57 Resp 20 06/10/18 11:57 BP 110/72 06/10/18 11:57 Pulse Ox 98 06/10/18 11:57 - Medical History PMH: No Chronic Diseases Surgical History: No Surg Hx Family History: States: No Known Family Hx Denies: Diabetes - Social History Hx Tobacco Use: No Hx Alcohol Use: No Hx Substance Use: No - Immunization History Hx Tetanus Toxoid Vaccination: No Hx Influenza Vaccination: No Hx Pneumococcal Vaccination: No Review Of Systems Constitutional: Negative for: Fever, Chills Eyes: Positive for: Redness, Other (discharge) ENT: Positive for: Ear Pain, Throat Pain, Other (decreased hearing) Respiratory: Negative for: Cough, Shortness of Breath Gastrointestinal: Negative for: Nausea, Vomiting, Diarrhea Physical Exam - Physical Exam Appears: Non-toxic, No Acute Distress Skin: Normal Color, Warm, Dry Head: Atraumatic, Normacephalic Eye(s): bilateral: PERRL, EOMI, right: Other (swollen appearing on outside and upper lid, moist, no discharge), left: Normal Inspection Ear(s): Left: Normal, Right: Other (swollen canal, TM not well-visualized) Nose: Normal Oral Mucosa: Moist Throat: Erythema, No Exudate Neck: Supple Chest: Symmetrical, No Tenderness Cardiovascular: Rhythm Regular, No Murmur Respiratory: Normal Breath Sounds, No Rales, No Rhonchi, No Wheezing Gastrointestinal/Abdominal: Soft, No Tenderness Extremity: Normal ROM Neurological/Psych: Oriented x3, Normal Speech, Normal Cognition ED Course And Treatment O2 Sat by Pulse Oximetry: 98 (RA) Pulse Ox Interpretation: Normal Medical Decision Making Medical Decision Making: Patient prescribed drops for eye and ear, and amoxicillin for throat. Disposition Counseled Patient/Family Regarding: Diagnosis, Need For Followup, Rx Given - Disposition Referrals: [facility] [Outside] [facility] [Outside] Disposition: HOME/ ROUTINE Disposition Time: 12:53 Condition: GOOD Additional Instructions: Use drops in ear and eye as directed. Take antibiotics until completed. Tylenol for pain if needed. Follow up in clinic. DO not share towels, do not rub left eye. Return for worse symptoms. Prescriptions: Amoxicillin [Amoxil 500 mg Cap] 500 mg PO BID #20 cap Neomycin/Polymyxin/Hydrocortis [Cortisporin Otic Susp] 4 drop OT QID #1 bottle Polymyxin/Trimethoprim Sulfate [Polytrim Ophth Soln] 1 drop OD Q6 #1 bottle Instructions: Sore Throat, Adult (DC), Conjunctivitis ([place]) (DC), Outer Ear Infection (DC) Forms: [employer] ([place]) - Clinical Impression Clinical Impression: Conjunctivitis, Pharyngitis, Otitis externa - PA / [employer] CONSULTANT / Resident Statement MD/DO has reviewed & agrees with the documentation as recorded. - Scribe Statement The provider has reviewed the documentation as recorded by the Scribe (Claus Arthur) All medical record entries made by the Scribe were at my direction and personally dictated by me. I have reviewed the chart and agree that the record accurately reflects my personal performance of the history, physical exam, medical decision making, and the department course for this patient. I have also personally directed, reviewed, and agree with the discharge instructions and disposition.
== END 2018-06-10 13:14 | disposition home or self-care (01) ==
LOC: C.ER 11:45
DX: H10.9 Unspecified conjunctivitis (principal); J02.9 Acute pharyngitis, unspecified; H60.91 Unspecified otitis externa, right ear